=== PATIENT | female | born 1995 ===

== ENCOUNTER 2019-08-08 12:03 | Outpatient (CLI) | payer OTHER ==
[2019-08-09 12:17] LABS: SARS-CoV-2 MS2 Positive; SARS-CoV-2 N Gene Negative; SARS-CoV-2 S Gene Negative; SARS-CoV-2 orf1ab Negative
== END 2019-08-08 12:04 | disposition home or self-care (01) ==
LOC: SCSLAB 12:03
PROVIDERS: ATTEND Family Medicine
DX: Z01.812 Encounter for preprocedural laboratory examination (principal); Z11.59 Encounter for screening for other viral diseases; K21.9 Gastro-esophageal reflux disease without esophagitis
CPT/HCPCS: 87635; U0003

== ENCOUNTER 2019-08-12 08:45 | Outpatient (CLI) | payer OTHER ==
--- NOTE | 2019-08-12 10:51 | RAD ---
BIPHASIC ESOPHAGRAM: HISTORY: Gastroesophageal reflux. FINDINGS: Swallowing was grossly normal. There is unobstructed flow of contrast through the esophagus into the stomach. No ulcer, stricture, mass, or diverticulum is seen. No GE reflux was demonstrated during the Valsalva maneuver. A 12 mm tablet barium tablet passed promptly from the esophagus into the stom ach. IMPRESSION: Normal exam. POS: SUKUMAR
== END 2019-08-12 08:46 | disposition home or self-care (01) ==
LOC: RAD 08:45
DX: K21.9 Gastro-esophageal reflux disease without esophagitis (principal)
CPT/HCPCS: 74220